=== PATIENT | female | born 2000 | race Caucasian/White ===

== ENCOUNTER 2022-11-08 21:35 | Emergency (ER) | payer OTHER ==
[2022-11-08 22:02] VITALS: BP 128/80; PULSE 76; RESP 17; TEMP 98.1; BMI 35.4
[2022-11-08 22:41] LABS: HEMATOCRIT 42.6 % (32.4-45.2); MCH 29.7 pg (25.7-33.7); MCHC 32.8 g/dl (32.0-36.0); MEAN CELL VOLUME 90.7 fl (80-96); MEAN PLT VOLUME 8.7 fl (7.5-11.1); RDW 13.5 % (11.6-15.6)
[2022-11-08 23:08] LABS: COCAINE, UR NEGATIVE (NEGATIVE)
[2022-11-08 23:09] LABS: OPIATES, URI NEGATIVE (NEGATIVE); PHENCYCLIDINE,URINE NEGATIVE (NEGATIVE); URINE BARBITURATES NEGATIVE (NEGATIVE); URINE BENZODIAZEPINES NEGATIVE (NEGATIVE)
[2022-11-08 23:10] LABS: URINE AMPHETAMINES NEGATIVE (NEGATIVE)
[2022-11-08 23:10] LABS: ALBUMIN 4.5 g/dl (3.4-5.0); BLOOD UREA NITROGEN 13.1 mg/dl (7-18); CALCIUM 9.6 mg/dl (8.5-10.1); CREATININE 0.7 mg/dl (0.6-1.3); POTASSIUM 3.6 mmol/L (3.5-5.1); SGOT/AST 12.7 U/L (15-37); SGPT/ALT 10.5 U/L (7-52); TOT PROT 6.8 g/dl (6.4-8.2)
[2022-11-08] MEDS ORDERED: ACETAMINOPHEN 1000 MG/100 ML BAG IVPB ONE (23:15)
[2022-11-08] MEDS ORDERED: ACETAMINOPHEN INJECTION 100 ML IVPB ONE (23:18)
[2022-11-08 23:24] LABS: METHADONE, UR NEGATIVE (NEGATIVE)
[2022-11-09 01:03] LABS: BILIRUBIN,TOTAL 0.5 mg/dL (0.2-1)
== END 2022-11-09 00:38 | disposition home or self-care (01) ==
LOC: FER 21:35
DX: R41.82 Altered mental status, unspecified (principal); R51.9 Headache, unspecified
CPT/HCPCS: 36415; 70450-TC; 80053; 80307; 81003; 81025; 82962; 85027; 87077; 87086; 99284-25